=== PATIENT | male | born 1940 | race Caucasian/White ===

== ENCOUNTER 2019-08-13 09:03 | Emergency (ER) | payer OTHER ==
[~2019-08-13] VITALS: Ht 167.6 cm; Wt 99.8 kg
[2019-08-13] MEDS ORDERED: ZETIA10 MG (09:20)
[2019-08-13] MEDS ORDERED: ATACAND32 MG (09:20)
[2019-08-13] MEDS ORDERED: TENORMIN50 M1 (09:20)
[2019-08-13] MEDS ORDERED: ROSUVASTATIN (09:21)
== END 2019-08-13 13:06 | disposition home or self-care (01) ==
LOC: ER 09:03
DX: R09.1 Pleurisy (principal); J40 Bronchitis, not specified as acute or chronic